=== PATIENT | male | born 1945 | race Caucasian/White ===

== ENCOUNTER 2019-01-18 08:00 | Emergency (ER) | payer OTHER ==
[~2019-01-18] VITALS: Ht 167.6 cm; Wt 77.1 kg
[2019-01-18 08:05] VITALS: BP_SYST 144
--- NOTE | 2019-01-18 08:36 | NUR ---
Patient to ER bed H1 to gown for evaluation. Side rails up.
--- NOTE | 2019-01-18 08:45 | NUR ---
Pt brought by ambulance after falling at home. Pt stated he tripped and fell, he is AO4, RR even and unlabore no distress noted, denies using blood thinners, denies blurry vision. No KO upon fall
--- NOTE | 2019-01-18 08:49 | NUR ---
Dr Blanco at bedside examining patient
[2019-01-18] MEDS ORDERED: LIDOCAINE 1% 10 MG/ML, 20 ML MDV INJ ONE (09:00)
--- NOTE | 2019-01-18 09:22 | NUR ---
Patient has a 3 cm laceration to forehead. Dr. Blanco applied sutures using sterile technique. Edges well approximated. Site cleansed with normal saline. Dressing of kerlix applied to site. No bleeding noted. Pt tolerated well.
[2019-01-18] MEDS ORDERED: BACITRACIN 1 GM OINT TP ONE (09:30)
--- NOTE | 2019-01-18 09:53 | NUR ---
Received a phone call from [facility] staffing requesting a CT for head due to fall today, per Dr wallace no need for CT at this time, pt A&Ox4, no N/V noted, JORJE, will cont to monitor.
[2019-01-18 10:26] VITALS: BP_SYST 134
--- NOTE | 2019-01-18 10:27 | NUR ---
Patient given written and verbal discharge instructions and verbalizes understanding. ER MD discussed with patient the results and treatment provided. Patient in stable condition. ID arm band removed. Rx of Motrin given. Patient educated on pain management and to follow up with PMD. Pain Scale 0. Opportunity for questions provided and answered. Medication side effect fact sheet provided.
== END 2019-01-18 10:27 | disposition home or self-care (01) ==
LOC: SED 08:00
DX: S01.81XA Laceration without foreign body of other part of head, initial encounter (principal); Z88.0 Allergy status to penicillin; W18.39XA Other fall on same level, initial encounter; Y93.89 Activity, other specified; Y92.89 Other specified places as the place of occurrence of the external cause; Y99.8 Other external cause status
CPT/HCPCS: 99283

== ENCOUNTER 2022-03-22 07:11 | Inpatient (IN) | payer OTHER ==
[~2022-03-22] VITALS: Ht 167.6 cm; Wt 81.6 kg
[2022-03-22 07:11] VITALS: BP_SYST 142
--- NOTE | 2022-03-22 07:11 | NUR ---
BROUGHT IN BY [facility] AND PLACED IN BED #4, TRIAGED AND REPORT GIVEN TO RUDDY
[2022-03-22] MEDS ORDERED: KETOROLAC TROMETHAMINE 15 MG VIAL IM ONE (07:15)
--- NOTE | 2022-03-22 07:17 | NUR ---
ER Dr. Astudillo at bedside examining patient.
--- NOTE | 2022-03-22 07:20 | NUR ---
Pt BIB ambulance - BLS from an assisted living. Pt is A&Ox4, chief complaint, mechanical fall. Pt c/o left lateral chest pain r/t fall and hitting edge of bed. Pt rates pain 5/10, describes pain as sharp. Pt denies dizziness and loss of conciousness upon. Pt denies hitting head upon fall. Pt denies taking blood thinners. Pt has a history of seizure, hypothyroidism, and hyperlipidemia. Stomach breathing noted, respiration rate 36, O2 sats 91%, applied 2L of O2 via N/C.
[2022-03-22] MEDS ORDERED: LIDOCAINE PATCH 5% 1 EA TP ONE (07:30)
--- NOTE | 2022-03-22 07:30 | NUR ---
Lab at bedside
[2022-03-22 07:40] LABS: BASOPHILS % (AUTO) 0.3 % (0.0-2.0); EOSINOPHILS # (AUTO) 0.1 K/uL (0.0-0.4); EOSINOPHILS % (AUTO) 0.7 % (0.0-4.0); HEMATOCRIT 42.6 % (36-54); HEMOGLOBIN 14.4 g/dL (14.0-18.0); LYMPHOCYTES # (AUTO) 0.4 K/uL (1.0-5.5); LYMPHOCYTES % (AUTO) 5.6 % (20.5-51.5); MEAN CORPUSCULAR HEMOGLOBIN 30 pg (27-31); MEAN CORPUSCULAR HGB CONC 34 % (32-36); MEAN CORPUSCULAR VOLUME 88 fL (79.0-98.0); MONOCYTES # (AUTO) 0.8 K/uL (0.0-1.0); MONOCYTES % (AUTO) 10.6 % (1.7-9.3); NEUTROPHILS # (AUTO) 6.4 K/uL (1.8-7.7); NEUTROPHILS % (AUTO) 82.8 % (40.0-70.0); PLATELET COUNT (AUTO) 166 K/uL (130-430); RED BLOOD CELL COUNT(AUTO) 4.82 MIL/uL (4.2-6.2); RED CELL DISTRIBUTION WIDTH 13.4 % (9.0-15.0); WHITE BLOOD COUNT (AUTO) 7.7 K/uL (4.8-10.8)
[2022-03-22 07:55] LABS: ANION GAP 10 (5-15); CALCIUM 8.8 mg/dL (8.4-11.0); CHLORIDE 104 mmol/L (98-107); CREATININE 0.96 mg/dL (0.55-1.30); GLUCOSE 124 mg/dL (70-99); UREA NITROGEN, BLOOD 18 mg/dL (8-21)
[2022-03-22 08:00] LABS: ALANINE AMINOTRANSFERASE 52 U/L (12-78); ALBUMIN 3.5 g/dL (3.4-4.8); ASPARTATE AMINOTRANSFERASE 44 U/L (10-37); TOTAL BILIRUBIN 0.7 mg/dL (0.0-1.0)
--- NOTE | 2022-03-22 08:00 | NUR ---
Pt taken to xray in [facility].
--- NOTE | 2022-03-22 08:15 | NUR ---
Pt returned from xray. Vitals: BP 127/76, 70 BPM, 24 Respirations on 2L O2 N/C
--- NOTE | 2022-03-22 08:23 | NUR ---
Dr. Robert @ bedside.
--- NOTE | 2022-03-22 08:25 | NUR ---
DR. العلي AT THE BEDSIDE
[2022-03-22] MEDS ORDERED: ONDANSETRON HCL 4 MG/2 ML VIAL IVP PRN (08:30)
[2022-03-22] MEDS ORDERED: LORazepam 2 MG/ML VIAL IVP PRN (08:30)
[2022-03-22] MEDS ORDERED: MORPHINE 2 MG/ML INJ. SYRINGE IVP PRN ×2 (08:30)
[2022-03-22] MEDS ORDERED: MAGNESIUM SULFATE 50 ML IV PRN (08:30)
[2022-03-22] MEDS ORDERED: AZITHROMYCIN 250 MG TABLET PO ONE (08:30)
[2022-03-22] MEDS ORDERED: ACETAMINOPHEN 325 MG TABLET PO PRN (08:30)
[2022-03-22] MEDS ORDERED: POTASSIUM CHLORIDE 20 MEQ TAB.PRT.SR PO PRN (08:30)
[2022-03-22] MEDS ORDERED: MUPIROCIN 2% TOPICAL OINTMENT 22 GM NS PRN (08:30)
[2022-03-22] MEDS ORDERED: ZOLPIDEM TARTRATE 5 MG TABLET PO PRN (08:30)
[2022-03-22] MEDS ORDERED: DOCUSATE SODIUM 100 MG CAPSULE PO PRN (08:30)
--- NOTE | 2022-03-22 08:35 | NUR ---
Pt left to CT in [facility].
--- NOTE | 2022-03-22 08:37 | NUR ---
NOTIFIED ED ADMITTING, RIMA REGARDING DR. WOLF'S REQUEST FOR ADMISSION. PER DR. WOLF, PT IS NOT STABLE FOR TRANSFER. WILL CONTACT OPERATIONS LABEL CLERK REGARDING THIS MATTER. PER FACESHEET: [facility]- [facility]
--- NOTE | 2022-03-22 08:45 | NUR ---
Covid and MRSA labeled and sent to lab.
--- NOTE | 2022-03-22 08:47 | NUR ---
Pt back from CT
[2022-03-22] MEDS ORDERED: FUROSEMIDE 40 MG/4 ML VIAL IVP ONE (09:00)
[2022-03-22] MEDS ORDERED: LEVO112T2 PO (09:13)
[2022-03-22] MEDS ORDERED: DIVA500T4 PO (09:13)
[2022-03-22] MEDS ORDERED: CYAN100070 PO (09:13)
[2022-03-22] MEDS ORDERED: LIP20 PO (09:13)
[2022-03-22] MEDS ORDERED: LEVE1000 PO (09:13)
[2022-03-22] MEDS ORDERED: TAMS-11 PO (09:13)
[2022-03-22] MEDS ORDERED: CYM30 PO (09:13)
--- NOTE | 2022-03-22 09:13 | NUR ---
MEDICAL RECONCILIATION COMPLETED.
--- NOTE | 2022-03-22 10:01 | NUR ---
Pt resting with eyes closed at this time.
--- NOTE | 2022-03-22 10:03 | NUR ---
Admit bed requested Patient will be admitted to care of DR. العلي Admitted to TELE unit. Diagnosis FALL Inpatient (Yes or No) YES Observation (Yes or No) No Orientation concerns or request close to nursing station (Yes or No) No Covid Status PENDING On vent or bipap NO Isolation requirements NO Needs a sitter NO From Home (Yes or if No enter name of facility) NO, [facility] Requires Dialysis (Yes or No) NO Med Rec Completed (Yes of No) YES
[2022-03-22 13:45] VITALS: BP_SYST 135
--- NOTE | 2022-03-22 14:11 | NUR ---
Patient will be admitted to care of ARELY GUO. Admitted to TELE unit. Will go to room 106A. Belongings list completed. Complete and up to date summary report printed. SBAR report to be given at bedside with opportunity for questions.
[2022-03-22] MEDS: levETIRAcetam 500 MG TABLET PO SCH ×2 (16:17→23:25)
[2022-03-22] MEDS: cefTRIAXone 1 GM in D5W 50 ML IV SCH (16:18)
[2022-03-22] MEDS: ENOXAPARIN SODIUM 40 MG/0.4 ML SYRINGE SUBCUT SCH (16:27)
--- NOTE | 2022-03-22 19:50 | NUR ---
SHIFT NOTES 1345-7P: 1345: PATIENT ADMITTED TO ROOM 6A. AAOX4 ABLE TO MAKE NEEDS KNOWN. DENIES DISTRESS OR PAIN AT THIS TIME. EXPLAINED POC AND PATIENT VERBALIZED UNDERSTANDING. BED IN LOW AND LOCK POSITION. BED ALARM ON. ALL PADDED SIDE RAILS DUE TO SEIZURES PRECAUTION. CALL LIGHT WITHIN REACH. STABLE CONDITION AT THIS TIME. 1600: BLANKET CUTTER HAND AT THE BEDSIDE. 1845: PATIENT IS RESTING IN BED QUIETLY WATCHING TV. NO ADDITIONAL DISTRESS NOTED. HOURLY ROUNDING MADE THROUGHOUT THE SHIFT. ALL NEEDS MET. STABLE CONDITION AT THIS TIME.
[2022-03-22] MEDS: TAMSULOSIN HCL 0.4 MG CAP PO SCH (21:00)
[2022-03-22] MEDS: ATORVASTATIN 20 MG TABLET PO SCH (21:00)
[2022-03-22] MEDS: LEVOTHYROXINE SODIUM 0.112 MG TABLET PO SCH (23:32)
[2022-03-22 23:46] VITALS: BP_SYST 147
[2022-03-23] VITALS (8 sets, daily range): BP systolic 121–141
--- NOTE | 2022-03-23 03:19 | NUR ---
Notes pt was in a stable condition and requested water to drink.Gave pt water and he is resting.Bed in low position with call light with reach of pt.
--- NOTE | 2022-03-23 04:46 | NUR ---
Consultation Paged Reason for Consultation: bt sz on keppra Was consult called: Y Person who was notified: text message Dr. Robbins Consulting Physician: Celestino Fernández Ordering Physician: Dr. Robert
--- NOTE | 2022-03-23 04:56 | NUR ---
PLAN OF CARE REVIEWED Addendum: 03/23/22 at 0457 by Leodan Marina RN RN Amended: Links added.
--- NOTE | 2022-03-23 04:57 | NUR ---
Notes Bed in low position and locked in position.call light within reach. pt is now sleeping comfortably.
--- NOTE | 2022-03-23 06:40 | NUR ---
CLOSING NOTES AFTER GIVEN PT ALL HIS MEDICATION,AND THE BED SET IN A LOW POSITION,WITH CALL LIGHT WITHIN HIS REACH. HE SLEPT COMFORTABLY. BREAK IS SET ON THE BED WITH ALARM. PT IS RESTING NOW.
[2022-03-23 07:03] LABS: HEMATOCRIT 41.3 % (36-54); HEMOGLOBIN 13.9 g/dL (14.0-18.0); MEAN CORPUSCULAR HEMOGLOBIN 30 pg (27-31); MEAN CORPUSCULAR HGB CONC 34 % (32-36); MEAN CORPUSCULAR VOLUME 88 fL (79.0-98.0); PLATELET COUNT (AUTO) 146 K/uL (130-430); RED BLOOD CELL COUNT(AUTO) 4.71 MIL/uL (4.2-6.2); RED CELL DISTRIBUTION WIDTH 13.5 % (9.0-15.0)
[2022-03-23 07:34] LABS: ANION GAP 10 (5-15); CALCIUM 8.2 mg/dL (8.4-11.0); CHLORIDE 103 mmol/L (98-107); CREATININE 0.91 mg/dL (0.55-1.30); GLUCOSE 97 mg/dL (70-99); UREA NITROGEN, BLOOD 25 mg/dL (8-21)
--- NOTE | 2022-03-23 07:47 | NUR ---
OPENING NOTES: RECEIVED BEDSIDE SBAR FROM PM SHIFT NURSE, PATIENT RESTING IN BED WITH EYES CLOSED, NO S/S OF ANY DISTRESS, BED AT LOCKED AND LOW POSITION, CALL LIGHT IN REACH, IV INTACT, SAFETY CHECKS DONE AND WILL DO THOUGHT THE DAY, WILL CONT TO MONITOR PATIENT PER ORDERS.
[2022-03-23] MEDS: AZITHROMYCIN 250 MG TABLET PO SCH (09:55)
[2022-03-23] MEDS: ENOXAPARIN SODIUM 40 MG/0.4 ML SYRINGE SUBCUT SCH (09:55)
[2022-03-23] MEDS: DULoxetine HCL 30 MG CAPSULE.DR (CYMBALTA) PO SCH (09:56)
[2022-03-23 10:49] LABS: BASOPHILS % (AUTO) 0.6 % (0.0-2.0); EOSINOPHILS # (AUTO) 0.5 K/uL (0.0-0.4); EOSINOPHILS % (AUTO) 10.3 % (0.0-4.0); LYMPHOCYTES # (AUTO) 0.7 K/uL (1.0-5.5); LYMPHOCYTES % (AUTO) 13.8 % (20.5-51.5); MONOCYTES # (AUTO) 0.6 K/uL (0.0-1.0); MONOCYTES % (AUTO) 11.4 % (1.7-9.3); NEUTROPHILS # (AUTO) 3.2 K/uL (1.8-7.7); NEUTROPHILS % (AUTO) 63.9 % (40.0-70.0)
[2022-03-23 10:50] LABS: ATYPICAL LYMPHOCYTES % 0 % (0-0); BASOPHILS % (MANUAL) 5 % (0-2); EOSINOPHILS % (MANUAL) 9 % (0-7); LYMPHOCYTES % (MANUAL) 14 % (20-46); MONOCYTES % (MANUAL) 2 % (0-11)
[2022-03-23] MEDS: HYDROCORTISONE 1% 28.35 GM TOPICAL OINT. TP SCH ×2 (11:00→20:58)
[2022-03-23] MEDS: levETIRAcetam 500 MG TABLET PO SCH ×2 (12:34→20:57)
[2022-03-23] MEDS: cefTRIAXone 1 GM in D5W 50 ML IV SCH (16:26)
--- NOTE | 2022-03-23 18:55 | NUR ---
CLOSING NOTES: PATIENT REMAINS STABLE TODAY NO S/S OF ANY DISTRESS, ALL SAFETY CHECKS DONE THOUGHT THE DAY, BED AT LOW AND LOCKED POSITION CALL LIGHT IN REACH WILL GIVE PM SHIFT NURSE BEDSIDE SBAR. .
--- NOTE | 2022-03-23 19:00 | NUR ---
RECEIVED PT IN BED.AOX4.ON 2 L NC. SR ON MONITOR.NOT IN RESPIRATORY DISTRESS.NO COMPLAINT OF PAIN NOTED AT THIS TIME.IVL L AC G20, PATENT AND INTACT.UPDATED ON POC FOR THE EVENING.BED IN LOWEST POSITION.BEDSIDE TABLE AND CALL LIGHT ARE WITHIN REACH.
--- NOTE | 2022-03-23 20:00 | NUR ---
RADIOLOGY AT THE BEDSIDE.SENT PT TO CT FOR CT SCAN OF HEAD.
--- NOTE | 2022-03-23 20:20 | NUR ---
CT HEAD DONE.NOT IN RESPIRATORY DISTRESS NOTED.
[2022-03-23] MEDS: ATORVASTATIN 20 MG TABLET PO SCH (20:57)
[2022-03-23] MEDS: TAMSULOSIN HCL 0.4 MG CAP PO SCH (20:57)
[2022-03-24] VITALS: BP_SYST 124
--- NOTE | 2022-03-24 00:20 | NUR ---
PT IS ASLEEP AT THIS TIME.PT HAS EVEN AND UNLABORED BREATHING NOTED.
--- NOTE | 2022-03-24 04:00 | NUR ---
KEPT PT CLEAN AND DRY.CHANGED AND REPOSITIONED PT.
[2022-03-24] MEDS: LEVOTHYROXINE SODIUM 0.112 MG TABLET PO SCH (06:13)
--- NOTE | 2022-03-24 06:46 | NUR ---
PATIENT IS NOT IN RESPIRATORY DISTRESS , ALL SAFETY PRECAUTIONS DONE. BED IN LOWEST POSITION, CALL LIGHT IS WITHIN REACH.WILL GIVE AM SHIFT RN BEDSIDE REPORT.
[2022-03-24 07:24] LABS: ANION GAP 8 (5-15); CALCIUM 8.3 mg/dL (8.4-11.0); CHLORIDE 104 mmol/L (98-107); GLUCOSE 103 mg/dL (70-99); UREA NITROGEN, BLOOD 25 mg/dL (8-21)
[2022-03-24 07:27] LABS: BASOPHILS % (AUTO) 0.5 % (0.0-2.0); EOSINOPHILS # (AUTO) 0.7 K/uL (0.0-0.4); EOSINOPHILS % (AUTO) 13.1 % (0.0-4.0); HEMATOCRIT 41.6 % (36-54); HEMOGLOBIN 14.1 g/dL (14.0-18.0); LYMPHOCYTES # (AUTO) 0.9 K/uL (1.0-5.5); LYMPHOCYTES % (AUTO) 16.8 % (20.5-51.5); MEAN CORPUSCULAR HEMOGLOBIN 30 pg (27-31); MEAN CORPUSCULAR HGB CONC 34 % (32-36); MEAN CORPUSCULAR VOLUME 88 fL (79.0-98.0); MONOCYTES # (AUTO) 0.7 K/uL (0.0-1.0); MONOCYTES % (AUTO) 12.8 % (1.7-9.3); NEUTROPHILS % (AUTO) 56.8 % (40.0-70.0); PLATELET COUNT (AUTO) 164 K/uL (130-430); RED BLOOD CELL COUNT(AUTO) 4.71 MIL/uL (4.2-6.2); RED CELL DISTRIBUTION WIDTH 13.2 % (9.0-15.0); WHITE BLOOD COUNT (AUTO) 5.2 K/uL (4.8-10.8)
[2022-03-24 08:00] VITALS: BP_SYST 122
[2022-03-24] MEDS: HYDROCORTISONE 1% 28.35 GM TOPICAL OINT. TP SCH ×2 (09:00→22:19)
[2022-03-24] MEDS: ENOXAPARIN SODIUM 40 MG/0.4 ML SYRINGE SUBCUT SCH (11:20)
[2022-03-24] MEDS: levETIRAcetam 500 MG TABLET PO SCH ×2 (11:21→22:17)
[2022-03-24] MEDS: AZITHROMYCIN 250 MG TABLET PO SCH (11:21)
[2022-03-24] MEDS: DULoxetine HCL 30 MG CAPSULE.DR (CYMBALTA) PO SCH (11:24)
[2022-03-24 12:00] VITALS: BP_SYST 131
[2022-03-24] MEDS: cefTRIAXone 1 GM in D5W 50 ML IV SCH (16:31)
[2022-03-24] MEDS: TAMSULOSIN HCL 0.4 MG CAP PO SCH (22:15)
[2022-03-24] MEDS: ATORVASTATIN 20 MG TABLET PO SCH (22:18)
[2022-03-24 23:05] VITALS: BP_SYST 134
[2022-03-24 23:43] VITALS: BP_SYST 134
[2022-03-25 00:47] VITALS: BP_SYST 139
[2022-03-25 04:11] VITALS: BP_SYST 134
--- NOTE | 2022-03-25 04:15 | NUR ---
Notes pt was in no distress mood. All safety precaution was in place . Bed in low position with breaks set and call light is within the reach of pt. Pt is resting comfortably
[2022-03-25] MEDS: LEVOTHYROXINE SODIUM 0.112 MG TABLET PO SCH (06:51)
[2022-03-25 07:16] LABS: ANION GAP 5 (5-15); CALCIUM 8.4 mg/dL (8.4-11.0); CHLORIDE 104 mmol/L (98-107); CREATININE 0.67 mg/dL (0.55-1.30); GLUCOSE 107 mg/dL (70-99); UREA NITROGEN, BLOOD 24 mg/dL (8-21)
[2022-03-25 07:17] LABS: BASOPHILS # (AUTO) 0.1 K/uL (0.0-0.2); EOSINOPHILS # (AUTO) 0.8 K/uL (0.0-0.4); EOSINOPHILS % (AUTO) 13.3 % (0.0-4.0); HEMATOCRIT 40.8 % (36-54); HEMOGLOBIN 13.7 g/dL (14.0-18.0); LYMPHOCYTES % (AUTO) 16.7 % (20.5-51.5); MEAN CORPUSCULAR HEMOGLOBIN 30 pg (27-31); MEAN CORPUSCULAR HGB CONC 34 % (32-36); MEAN CORPUSCULAR VOLUME 89 fL (79.0-98.0); MONOCYTES # (AUTO) 0.7 K/uL (0.0-1.0); MONOCYTES % (AUTO) 11.8 % (1.7-9.3); NEUTROPHILS # (AUTO) 3.4 K/uL (1.8-7.7); NEUTROPHILS % (AUTO) 56.2 % (40.0-70.0); PLATELET COUNT (AUTO) 176 K/uL (130-430); RED BLOOD CELL COUNT(AUTO) 4.61 MIL/uL (4.2-6.2); RED CELL DISTRIBUTION WIDTH 13.6 % (9.0-15.0)
[2022-03-25] MEDS: levETIRAcetam 500 MG TABLET PO SCH ×2 (13:10→22:15)
[2022-03-25] MEDS: AZITHROMYCIN 250 MG TABLET PO SCH (13:11)
[2022-03-25] MEDS: DULoxetine HCL 30 MG CAPSULE.DR (CYMBALTA) PO SCH (13:12)
[2022-03-25] MEDS: ENOXAPARIN SODIUM 40 MG/0.4 ML SYRINGE SUBCUT SCH (13:14)
[2022-03-25] MEDS: HYDROCORTISONE 1% 28.35 GM TOPICAL OINT. TP SCH ×2 (13:15→22:16)
[2022-03-25] MEDS: cefTRIAXone 1 GM in D5W 50 ML IV SCH (13:16)
[2022-03-25] MEDS: TAMSULOSIN HCL 0.4 MG CAP PO SCH (22:14)
[2022-03-25] MEDS: ATORVASTATIN 20 MG TABLET PO SCH (22:15)
[2022-03-26 00:44] VITALS: BP_SYST 131
[2022-03-26 06:26] VITALS: BP_SYST 124
[2022-03-26 06:30] VITALS: BP_SYST 124
--- NOTE | 2022-03-26 06:54 | NUR ---
notes pt is stable with call light within reach and pt took all his medication. Resting . comfortably.
[2022-03-26 06:55] LABS: BASOPHILS # (AUTO) 0.1 K/uL (0.0-0.2); BASOPHILS % (AUTO) 1.1 % (0.0-2.0); EOSINOPHILS # (AUTO) 0.6 K/uL (0.0-0.4); EOSINOPHILS % (AUTO) 11.2 % (0.0-4.0); HEMATOCRIT 40.6 % (36-54); HEMOGLOBIN 13.9 g/dL (14.0-18.0); LYMPHOCYTES # (AUTO) 1.5 K/uL (1.0-5.5); LYMPHOCYTES % (AUTO) 26.1 % (20.5-51.5); MEAN CORPUSCULAR HEMOGLOBIN 30 pg (27-31); MEAN CORPUSCULAR HGB CONC 34 % (32-36); MEAN CORPUSCULAR VOLUME 88 fL (79.0-98.0); MONOCYTES # (AUTO) 0.8 K/uL (0.0-1.0); MONOCYTES % (AUTO) 14.3 % (1.7-9.3); NEUTROPHILS # (AUTO) 2.7 K/uL (1.8-7.7); NEUTROPHILS % (AUTO) 47.3 % (40.0-70.0); PLATELET COUNT (AUTO) 186 K/uL (130-430); RED BLOOD CELL COUNT(AUTO) 4.61 MIL/uL (4.2-6.2); RED CELL DISTRIBUTION WIDTH 13.1 % (9.0-15.0); WHITE BLOOD COUNT (AUTO) 5.7 K/uL (4.8-10.8)
[2022-03-26 07:16] LABS: ANION GAP 7 (5-15); CALCIUM 8.5 mg/dL (8.4-11.0); CHLORIDE 104 mmol/L (98-107); CREATININE 0.69 mg/dL (0.55-1.30); GLUCOSE 103 mg/dL (70-99); UREA NITROGEN, BLOOD 20 mg/dL (8-21)
[2022-03-26 07:26] VITALS: BP_SYST 124
[2022-03-26 08:15] VITALS: BP_SYST 122
[2022-03-26] MEDS: levETIRAcetam 500 MG TABLET PO SCH ×2 (09:31→23:33)
[2022-03-26] MEDS: DULoxetine HCL 30 MG CAPSULE.DR (CYMBALTA) PO SCH (09:31)
[2022-03-26] MEDS: ENOXAPARIN SODIUM 40 MG/0.4 ML SYRINGE SUBCUT SCH (09:31)
[2022-03-26] MEDS: AZITHROMYCIN 250 MG TABLET PO SCH (09:32)
[2022-03-26] MEDS: HYDROCORTISONE 1% 28.35 GM TOPICAL OINT. TP SCH ×2 (09:32→23:33)
[2022-03-26] MEDS: LEVOTHYROXINE SODIUM 0.112 MG TABLET PO SCH (09:32)
[2022-03-26] MEDS: cefTRIAXone 1 GM in D5W 50 ML IV SCH (18:16)
--- NOTE | 2022-03-26 19:30 | NUR ---
Handoff has been given to Fernandez
[2022-03-26 20:00] VITALS: BP_SYST 132
--- NOTE | 2022-03-26 22:30 | NUR ---
2229- Assumed care of patient at this time from ARELY Presley. Patient awake in bed. Respirations even and unlabored. No SOB noted. HL to right forearm intact and patent with no redness or irritation to site. Denies pain at this time. No acute distress noted. Will continue to monitor for safety. Bharath Beasley RN.
[2022-03-26] MEDS: TAMSULOSIN HCL 0.4 MG CAP PO SCH (23:33)
[2022-03-26] MEDS: ATORVASTATIN 20 MG TABLET PO SCH (23:33)
[2022-03-27] VITALS: BP_SYST 130
[2022-03-27 04:00] VITALS: BP_SYST 134
[2022-03-27 06:21] LABS: BASOPHILS # (AUTO) 0.1 K/uL (0.0-0.2); BASOPHILS % (AUTO) 1.2 % (0.0-2.0); EOSINOPHILS # (AUTO) 0.5 K/uL (0.0-0.4); EOSINOPHILS % (AUTO) 7.8 % (0.0-4.0); HEMATOCRIT 41.2 % (36-54); HEMOGLOBIN 13.9 g/dL (14.0-18.0); LYMPHOCYTES # (AUTO) 1.7 K/uL (1.0-5.5); LYMPHOCYTES % (AUTO) 25.7 % (20.5-51.5); MEAN CORPUSCULAR HEMOGLOBIN 30 pg (27-31); MEAN CORPUSCULAR HGB CONC 34 % (32-36); MEAN CORPUSCULAR VOLUME 88 fL (79.0-98.0); MONOCYTES % (AUTO) 16.2 % (1.7-9.3); NEUTROPHILS # (AUTO) 3.2 K/uL (1.8-7.7); NEUTROPHILS % (AUTO) 49.1 % (40.0-70.0); PLATELET COUNT (AUTO) 207 K/uL (130-430); RED BLOOD CELL COUNT(AUTO) 4.69 MIL/uL (4.2-6.2); RED CELL DISTRIBUTION WIDTH 12.7 % (9.0-15.0); WHITE BLOOD COUNT (AUTO) 6.4 K/uL (4.8-10.8)
[2022-03-27] MEDS: LEVOTHYROXINE SODIUM 0.112 MG TABLET PO SCH (06:39)
[2022-03-27 06:48] LABS: ANION GAP 8 (5-15); CALCIUM 8.6 mg/dL (8.4-11.0); CHLORIDE 103 mmol/L (98-107); GLUCOSE 97 mg/dL (70-99); UREA NITROGEN, BLOOD 20 mg/dL (8-21)
[2022-03-27 07:28] VITALS: BP_SYST 141
[2022-03-27] MEDS: ENOXAPARIN SODIUM 40 MG/0.4 ML SYRINGE SUBCUT SCH (09:48)
[2022-03-27] MEDS: AZITHROMYCIN 250 MG TABLET PO SCH (09:48)
[2022-03-27] MEDS: levETIRAcetam 500 MG TABLET PO SCH (09:48)
[2022-03-27] MEDS: DULoxetine HCL 30 MG CAPSULE.DR (CYMBALTA) PO SCH (09:48)
[2022-03-27] MEDS: HYDROCORTISONE 1% 28.35 GM TOPICAL OINT. TP SCH (09:50)
[2022-03-27 11:40] VITALS: BP_SYST 123
--- NOTE | 2022-03-27 14:39 | NUR ---
CM: Informed Veronica/[place] that the pt is ready to dc back. She said there is no service car driver today and will set up the pickling operator for tomorrow at 8 am. Informed Suzette and SALUD [facility] that the pt is no longer need snf placement. The pt can go back with the [facility] today. Suzette provided the ambulance transfer back with auth # [id number]. I booked the ambulance and had to cancel the ride because the staff from the [facility] called to Radha stated they will provided the transportation today at 3-3:15 pm. -- ARELY Peterson made aware.
--- NOTE | 2022-03-27 15:12 | NUR ---
PHYSICAL THERAPY CO-SIGN The Physical Therapy Progress Notes documented by Salon Supervisor have been reviewed. Reviewed/Co-Signed by: Wang Madrid Documentation Done by:JADIEL MCCRAY Addendum: 03/27/22 at 1512 by Wang Madrid PT Amended: Links added.
--- NOTE | 2022-03-29 08:13 | NUR ---
PHYSICAL THERAPY CO-SIGN The Physical Therapy Progress Notes documented by Industry Segment Specialist have been reviewed. Reviewed/Co-Signed by: Wang Madrid Documentation Done by:JADIEL MCCRAY Addendum: 03/29/22 at 0813 by Wang Madrid PT Amended: Links added.
== END 2022-03-27 15:10 | disposition home or self-care (01) | DRG 178 ==
LOC: SED 07:11 → STU 08:36 → SMU 03-26 14:15
PROVIDERS: ADMIT General Practice; ATTEND General Practice
PROC: 4A00X4Z Measurement of Central Nervous Electrical Activity, External Approach (ICD-10-PCS; principal; 2022-03-23)
DX: J69.0 Pneumonitis due to inhalation of food and vomit (principal); G81.11 Spastic hemiplegia affecting right dominant side; S22.32XA Fracture of one rib, left side, initial encounter for closed fracture; S22.31XA Fracture of one rib, right side, initial encounter for closed fracture; E87.70 Fluid overload, unspecified; E78.5 Hyperlipidemia, unspecified; E03.9 Hypothyroidism, unspecified; M48.00 Spinal stenosis, site unspecified; L30.8 Other specified dermatitis; Z20.822 Contact with and (suspected) exposure to COVID-19; W18.39XA Other fall on same level, initial encounter; Z88.0 Allergy status to penicillin; Y93.89 Activity, other specified; Y92.89 Other specified places as the place of occurrence of the external cause; Y99.8 Other external cause status
CPT/HCPCS: 36415; 70450-TC; 71046-TC; 71250-TC; 76376; 80048; 80053; 83037; 83735; 83880; 84443; 84484; 85007; 85025; 85027; 87081; 93005; 93306; 95816; 97112-GP; 97116-GP; 97530-GP; 99285; G0378; J0696; J1650; J1885; J1940; J7060; Q0144

== ENCOUNTER 2023-06-25 21:25 | Inpatient (IN) | payer BC, OTHER ==
[~2023-06-25] VITALS: Ht 167.6 cm; Wt 81.6 kg
[~2023-06-25 21:25] MED LIST: CYAN100070 PO; CYM30 PO; LEVO112T2 PO; LIP20 PO; TAMS-11 PO
[2023-06-25 21:58] VITALS: BP_SYST 160; PULSE 90; RESP 18; TEMP 97; O2SAT 97
[2023-06-26 04:14] LABS: BASOPHILS # (AUTO) 0.1 K/uL (0.0-0.2); BASOPHILS % (AUTO) 0.8 % (0.0-2.0); EOSINOPHILS # (AUTO) 0.1 K/uL (0.0-0.4); EOSINOPHILS % (AUTO) 1.8 % (0.0-4.0); HEMATOCRIT 42.8 % (36-54); HEMOGLOBIN 14.9 g/dL (14.0-18.0); LYMPHOCYTES # (AUTO) 1.3 K/uL (1.0-5.5); LYMPHOCYTES % (AUTO) 15.8 % (20.5-51.5); MEAN CORPUSCULAR HEMOGLOBIN 30 pg (27-31); MEAN CORPUSCULAR HGB CONC 35 % (32-36); MEAN CORPUSCULAR VOLUME 87 fL (79.0-98.0); MONOCYTES # (AUTO) 0.7 K/uL (0.0-1.0); MONOCYTES % (AUTO) 8.9 % (1.7-9.3); NEUTROPHILS # (AUTO) 5.8 K/uL (1.8-7.7); NEUTROPHILS % (AUTO) 72.7 % (40.0-70.0); PLATELET COUNT (AUTO) 242 K/uL (130-430); RED CELL DISTRIBUTION WIDTH 12.9 % (9.0-15.0)
[2023-06-26] MEDS ORDERED: IBUP-1970 PO (04:55)
[2023-06-26] MEDS ORDERED: LEVE750T12 PO (04:55)
[2023-06-26] MEDS ORDERED: [UNRECOGNIZED DRUG - OTHER] PO (04:55)
[2023-06-26] MEDS ORDERED: EXCEDRIN PO (04:55)
[2023-06-26] MEDS ORDERED: ALBMDI INH (04:55)
[2023-06-26] MEDS ORDERED: ACET325T PO (04:55)
[2023-06-26 05:23] LABS: ALANINE AMINOTRANSFERASE 41 U/L (12-78); ALBUMIN 3.8 g/dL (3.4-4.8); ANION GAP 11 (5-15); ASPARTATE AMINOTRANSFERASE 14 U/L (10-37); CARBON DIOXIDE 26 mmol/L (23-29); CHLORIDE 106 mmol/L (98-107); CREATININE 0.87 mg/dL (0.55-1.30); GLUCOSE 116 mg/dL (74-106); SODIUM SERUM 143 mmol/L (136-145); TOTAL BILIRUBIN 0.6 mg/dL (0.0-1.0); TOTAL PROTEIN, SERUM 7.9 g/dL (6.4-8.3); UREA NITROGEN, BLOOD 14 mg/dL (8-21)
[2023-06-26] MEDS: levETIRAcetam 500 MG TABLET PO ONE (08:00)
[2023-06-26] MEDS ORDERED: LORazepam 2 MG/ML VIAL IVP PRN (08:15)
[2023-06-26] MEDS ORDERED: DOCUSATE SODIUM 100 MG CAPSULE PO PRN (08:15)
[2023-06-26] MEDS ORDERED: MAGNESIUM SULFATE 50 ML IV PRN (08:15)
[2023-06-26] MEDS ORDERED: NALOXONE HCL 0.4 MG/ML AMP (NARCAN) IVP PRN ×2 (08:15)
[2023-06-26] MEDS ORDERED: ALBUTEROL MDI INHALATION 8 GM INH INH PRN (08:15)
[2023-06-26] MEDS ORDERED: MUPIROCIN 2% TOPICAL OINTMENT 22 GM NS PRN (08:15)
[2023-06-26] MEDS ORDERED: POTASSIUM CHLORIDE 20 MEQ TABLET.ER PO PRN (08:15)
[2023-06-26] MEDS ORDERED: ZOLPIDEM TARTRATE 5 MG TABLET PO PRN (08:15)
[2023-06-26] MEDS ORDERED: MORPHINE 2 MG/ML INJ. SYRINGE IVP PRN ×2 (08:15)
[2023-06-26] MEDS ORDERED: ONDANSETRON HCL 4 MG/2 ML VIAL IVP PRN (08:15)
[2023-06-26] MEDS ORDERED: ACETAMINOPHEN 325 MG TABLET PO PRN (08:15)
[2023-06-26] MEDS ORDERED: levETIRAcetam 500 MG TABLET ONE (08:26)
[2023-06-26 11:38] VITALS: BP_SYST 141; PULSE 75; O2SAT 97
[2023-06-26] MEDS ORDERED: ALBUTEROL SULFATE 0.083% 2.5 MG/3 ML VIAL.NEB INH PRN (11:45)
[2023-06-26 14:30] VITALS: BP_SYST 158; PULSE 80; RESP 18; TEMP 98.7; O2SAT 100
[2023-06-26 16:10] VITALS: BP_SYST 142; PULSE 99; RESP 16; TEMP 98.3; O2SAT 94
[2023-06-26 20:00] VITALS: BP_SYST 144; PULSE 68; RESP 20; TEMP 97.7; O2SAT 94
[2023-06-26] MEDS: levETIRAcetam 500 MG TABLET PO SCH (21:30)
[2023-06-26] MEDS: TAMSULOSIN HCL 0.4 MG CAP PO SCH (21:30)
[2023-06-26] MEDS: ATORVASTATIN 20 MG TABLET PO SCH (21:30)
[2023-06-27 01:00] VITALS: BP_SYST 136; PULSE 61; RESP 20; TEMP 98.3; O2SAT 93
[2023-06-27] MEDS: LEVOTHYROXINE SODIUM 0.112 MG TABLET PO SCH (06:22)
[2023-06-27 06:50] LABS: BASOPHILS # (AUTO) 0.1 K/uL (0.0-0.2); BASOPHILS % (AUTO) 1.1 % (0.0-2.0); EOSINOPHILS # (AUTO) 0.3 K/uL (0.0-0.4); EOSINOPHILS % (AUTO) 4.4 % (0.0-4.0); HEMATOCRIT 41.7 % (36-54); HEMOGLOBIN 14.4 g/dL (14.0-18.0); LYMPHOCYTES # (AUTO) 1.5 K/uL (1.0-5.5); LYMPHOCYTES % (AUTO) 20.8 % (20.5-51.5); MEAN CORPUSCULAR HEMOGLOBIN 30 pg (27-31); MEAN CORPUSCULAR HGB CONC 35 % (32-36); MEAN CORPUSCULAR VOLUME 88 fL (79.0-98.0); MONOCYTES # (AUTO) 0.8 K/uL (0.0-1.0); MONOCYTES % (AUTO) 11.4 % (1.7-9.3); NEUTROPHILS # (AUTO) 4.5 K/uL (1.8-7.7); NEUTROPHILS % (AUTO) 62.3 % (40.0-70.0); PLATELET COUNT (AUTO) 233 K/uL (130-430); RED BLOOD CELL COUNT(AUTO) 4.73 MIL/uL (4.2-6.2); RED CELL DISTRIBUTION WIDTH 13.2 % (9.0-15.0); WHITE BLOOD COUNT (AUTO) 7.3 K/uL (4.8-10.8)
[2023-06-27 07:38] LABS: ANION GAP 9 (5-15); CALCIUM 8.3 mg/dL (8.4-11.0); CARBON DIOXIDE 27 mmol/L (23-29); CHLORIDE 106 mmol/L (98-107); CREATININE 0.87 mg/dL (0.55-1.30); GLUCOSE 93 mg/dL (74-106); POTASSIUM 3.6 mmol/L (3.5-5.1); SODIUM SERUM 142 mmol/L (136-145); UREA NITROGEN, BLOOD 16 mg/dL (8-21)
[2023-06-27 08:04] VITALS: BP_SYST 115; PULSE 78; RESP 14; TEMP 95.9; O2SAT 95
[2023-06-27] MEDS: DULoxetine HCL 30 MG CAPSULE.DR (CYMBALTA) PO SCH (09:08)
[2023-06-27 11:12] VITALS: BP_SYST 117; PULSE 65; RESP 15; TEMP 97.4; O2SAT 96
[2023-06-27 15:26] VITALS: BP_SYST 130; PULSE 63; RESP 16; TEMP 98.2; O2SAT 94
[2023-06-27 20:00] VITALS: BP_SYST 142; PULSE 68; RESP 18; TEMP 97.4; O2SAT 93
[2023-06-28 00:54] VITALS: BP_SYST 130; PULSE 67; RESP 18; TEMP 98.6; O2SAT 94
[2023-06-28 06:01] LABS: BASOPHILS # (AUTO) 0.1 K/uL (0.0-0.2); BASOPHILS % (AUTO) 0.8 % (0.0-2.0); EOSINOPHILS # (AUTO) 0.5 K/uL (0.0-0.4); EOSINOPHILS % (AUTO) 6.7 % (0.0-4.0); HEMATOCRIT 42.4 % (36-54); HEMOGLOBIN 14.7 g/dL (14.0-18.0); LYMPHOCYTES # (AUTO) 1.7 K/uL (1.0-5.5); MEAN CORPUSCULAR HEMOGLOBIN 31 pg (27-31); MEAN CORPUSCULAR HGB CONC 35 % (32-36); MEAN CORPUSCULAR VOLUME 88 fL (79.0-98.0); MONOCYTES # (AUTO) 0.8 K/uL (0.0-1.0); MONOCYTES % (AUTO) 10.9 % (1.7-9.3); NEUTROPHILS # (AUTO) 4.3 K/uL (1.8-7.7); NEUTROPHILS % (AUTO) 58.6 % (40.0-70.0); PLATELET COUNT (AUTO) 231 K/uL (130-430); RED BLOOD CELL COUNT(AUTO) 4.82 MIL/uL (4.2-6.2); RED CELL DISTRIBUTION WIDTH 13.3 % (9.0-15.0); WHITE BLOOD COUNT (AUTO) 7.3 K/uL (4.8-10.8)
[2023-06-28 06:41] LABS: ANION GAP 12 (5-15); CALCIUM 8.3 mg/dL (8.4-11.0); CARBON DIOXIDE 26 mmol/L (23-29); CHLORIDE 106 mmol/L (98-107); CREATININE 0.83 mg/dL (0.55-1.30); GLUCOSE 93 mg/dL (74-106); POTASSIUM 3.5 mmol/L (3.5-5.1); SODIUM SERUM 144 mmol/L (136-145); UREA NITROGEN, BLOOD 19 mg/dL (8-21)
[2023-06-28 08:00] VITALS: BP_SYST 144; PULSE 62; RESP 16; TEMP 97.4; O2SAT 97
[2023-06-28 12:10] VITALS: BP_SYST 135; PULSE 65; RESP 17; TEMP 98.1; O2SAT 98
[2023-06-28 13:42] VITALS: BP_SYST 135; PULSE 65; RESP 17; TEMP 98.1; O2SAT 98
[2023-06-28 17:03] VITALS: BP_SYST 138; PULSE 64; RESP 16; TEMP 97.8; O2SAT 97
== END 2023-06-28 15:05 | disposition home or self-care (01) | DRG 154 ==
LOC: SED 21:25 → STU 06-26 05:31 → SMU 06-27 23:39
PROVIDERS: ADMIT General Practice; ATTEND General Practice
DX: S02.2XXA Fracture of nasal bones, initial encounter for closed fracture (principal); I63.9 Cerebral infarction, unspecified; G81.11 Spastic hemiplegia affecting right dominant side; G11.9 Hereditary ataxia, unspecified; J44.9 Chronic obstructive pulmonary disease, unspecified; W18.39XA Other fall on same level, initial encounter; Z79.899 Other long term (current) drug therapy; Z91.81 History of falling; Y93.89 Activity, other specified; Y92.89 Other specified places as the place of occurrence of the external cause; Y99.8 Other external cause status; E78.5 Hyperlipidemia, unspecified; E03.9 Hypothyroidism, unspecified; M48.00 Spinal stenosis, site unspecified; M19.90 Unspecified osteoarthritis, unspecified site; G40.909 Epilepsy, unspecified, not intractable, without status epilepticus; Z66 Do not resuscitate
CPT/HCPCS: 36415; 70450-TC; 70486; 70551; 71045; 72125-TC; 72170-TC; 80048; 80053; 83037; 83735; 84443; 84484; 85025; 93005; 94070; 95816; 97110-GP; 97116-GP; 97530-GP; 99285; G0378